=== PATIENT | male | born 1985 ===

== ENCOUNTER 2018-03-24 11:48 | Day surgery (SDC) | payer OTHER, SELFPAY ==
[2018-03-24 13:40] VITALS: BP 121/80; PULSE 52; RESP 12; TEMP 36.2; O2SAT 97; BMI 34.0
[2018-03-24] MEDS: LACTATED RINGERS 1,000 ML 42 ML IV (14:10)
--- NOTE | 2018-03-24 14:52 | PM.PREOP ---
Pre-operative Note Interval Note Pre-op Check: Yes History & Physical Reviewed by Physician and Yes Exam Performed Changes: No ASA Class (for procedural sedation): I
--- NOTE | 2018-03-24 14:54 | PM.OP.ENDO ---
Operative Date/Time/Diagnoses Date of procedure: 03/24/18 Time of procedure: 14:54 Pre-op diagnosis: See indication and findings Post-op diagnosis: same Procedure & Clinicians Study performed: Colonoscopy Same procedure as scheduled: Yes Indications: Follow-up of bout of acute diverticulitis with possibly abnormal CT scan. Surgeon: Christina Long Procedure Notes Procedure in detail: After informed consent was obtained the patient was placed in left lateral decubitus position. The video colonoscope was introduced the rectum slowly advanced to the cecum. On slow withdrawal mucosa was carefully examined. The scope was removed. Patient tolerated procedure well. Preparation was good. Blood loss none Complications none Sedation per anesthesia Findings 1. Normal colonoscopy to cecum other than a few scattered severity small diverticula in the sigmoid colon. Colonoscopy is fairly unremarkable. If necessary it is just follow up with Dr. Maldonado on a as needed basis.
[2018-03-24 15:15] VITALS: BP 85/46; PULSE 73; RESP 20; TEMP 36.4; O2SAT 95
[2018-03-24 15:20] VITALS: BP 90/47; PULSE 69; RESP 13; TEMP 36.6; O2SAT 95
[2018-03-24 15:25] VITALS: BP 91/51; PULSE 70; RESP 13; TEMP 36.6; O2SAT 95
[2018-03-24 15:35] VITALS: BP 116/70; PULSE 76; RESP 14; TEMP 36.9; O2SAT 95
[2018-03-24 15:38] VITALS: BP 117/70; PULSE 65; RESP 20; TEMP 36.9; O2SAT 95
--- NOTE | 2018-03-24 15:40 | SUR.PHASEII ---
see i&o for total LR infused- MAR does not reflect start time for infusion
== END 2018-03-24 15:50 | disposition home or self-care (01) ==
PROVIDERS: Visit Provider Internal Medicine Gastroenterology
PROC: 0DJD8ZZ Inspection of Lower Intestinal Tract, Via Natural or Artificial Opening Endoscopic (ICD-10-PCS; CPT 45378; principal; 2018-03-24 15:00)
DX: Z87.19 Personal history of other diseases of the digestive system (principal); R93.3 Abnormal findings on diagnostic imaging of other parts of digestive tract; F10.21 Alcohol dependence, in remission; Z87.891 Personal history of nicotine dependence
CPT/HCPCS: 45378; J2704; J3010